=== PATIENT | male | born 1935 | race Caucasian/White ===

== ENCOUNTER 2017-09-11 00:44 | Emergency (ER) | payer MEDICARE, BC ==
[~2017-09-11] VITALS: Ht 162.6 cm; Wt 59.0 kg
[2017-09-11 01:05] VITALS: BP 170/76; PULSE 80; RESP 18; TEMP 97.6; O2SAT 97
[2017-09-11] MEDS ORDERED: MYCO500 PO (02:11)
[2017-09-11] MEDS ORDERED: MULTTAB67 PO (02:12)
[2017-09-11] MEDS ORDERED: FURO40TA PO (02:12)
[2017-09-11] MEDS ORDERED: PRIM50TA5 PO (02:12)
[2017-09-11] MEDS ORDERED: PRAV40TA2 PO (02:12)
[2017-09-11] MEDS ORDERED: ATEN25TA PO (02:12)
[2017-09-11] MEDS ORDERED: NIFE20 PO (02:12)
[2017-09-11] MEDS ORDERED: CYCL25CA4 PO (02:12)
[2017-09-11] MEDS ORDERED: PRED2.5T PO (02:12)
--- NOTE | 2017-09-11 02:37 | PD ---
HPI Chief Complaint: Cold / Flu Symptoms Time Seen by Provider: 02:33 Travel History International Travel<30 days: No Contact w/Intl Traveler<30days: No Traveled to known affect area: No History of Present Illness HPI 82-year-old male presents to the emergency department by private transportation to care family for 2 days of runny nose post sinus drainage and sore throat and cough. Daughter states he felt warm to her and patient reports had a chill this evening. Patient is status post renal transplant from 2005. Patient is visiting from [place]. Patient recently exposed to family members with strep throat. Patient denies any headache there is been no noted altered mentation no change in his speech no report of generalized weakness patient denies any chest pain or pleuritic chest pain or shortness of breath. Cough is productive but patient has not looked at the phlegm. Patient has had no nausea or vomiting no abdominal pain no flank pain no diarrhea and no dysuria. Patient's continue to have good urine output. Patient does not report any lower extremity pain or swelling. Patient denies other concerns or complaints. PFSH Past Medical History Narrative Medical Renal failure status post AV fistula graft left upper extremity renal transplant hypertension dyslipidemia Medical History: Denies Significant Hx Diminished Hearing: Yes Hypertension: Yes Influenza Vaccination: Yes Social History Alcohol Use: No Tobacco Use: No Substance Use: No Allergies-Medications (Allergen,Severity, Reaction): Coded Allergies: iodine (Verified Allergy, Unknown, UNKNOWN, 09/11/17) zinc (Verified Allergy, Unknown, UNKNOWN, 09/11/17) Reported Meds & Prescriptions Reported Meds & Active Scripts Active Zithromax Z-Per (Azithromycin) 250 Mg Dspk 250 Mg PO DIRECTED 500 MG (2 tabs) day 1, then 1 tab days 2-5. Reported Furosemide 40 Mg Tab 40 Mg PO DAILY Multiple Vitamin 1 Tab 1 Tab PO DAILY Atenolol 25 Mg Tab 12.5 Mg PO HS Primidone 50 Mg Tab 50 Mg PO BID Pravastatin 40 Mg Tab 40 Mg PO DAILY Prednisone 2.5 Mg Tab 2.5 Mg PO DAILY Cyclosporine 25 Mg Cap 50 Mg PO TID Nifedipine 20 Mg Cap 60 Mg PO BID Cellcept (Mycophenolate Mofetil) 500 Mg Tab 1,000 Mg PO BID Review of Systems Except as stated in HPI: all other systems reviewed are Neg General / Constitutional: Positive: Fever (Subjective), Chills HENT: Positive: Sore Throat, Congestion Cardiovascular: No: Chest Pain or Discomfort Respiratory: Positive: Cough, No: Shortness of Breath Gastrointestinal: No: Nausea, Vomiting, Diarrhea Genitourinary: No: Dysuria Musculoskeletal: No: Myalgias, Arthralgias Skin: No Rash Neurologic: No: Weakness Psychiatric: No: Anxiety Hematologic/Lymphatic: No: Easy Bruising Physical Exam Narrative GENERAL: Well-developed pleasant elderly male in no acute distress no respiratory distress SKIN: Warm and dry. HEAD: Normocephalic. EYES: No scleral icterus. No injection or drainage. NECK: Supple, trachea midline. No JVD or lymphadenopathy. CARDIOVASCULAR: Regular rate and rhythm without murmurs, gallops, or rubs. RESPIRATORY: Breath sounds equal bilaterally. No accessory muscle use. GASTROINTESTINAL: Abdomen soft, non-tender, nondistended. MUSCULOSKELETAL: No cyanosis, or edema. Left upper extremity AV fistula graft with thrill BACK: Nontender without obvious deformity. No CVA tenderness. Data Data Last Documented VS Vital Signs Date Time Temp Pulse Resp B/P (MAP) Pulse Ox O2 Delivery O2 Flow Rate FiO2 09/11/17 05:23 99.0 80 09/11/17 04:59 80 16 Orders Orders Influenzae A/B Antigen (09/11/17 02:01) Complete Blood Count With Diff (09/11/17 02:33) Comprehensive Metabolic Panel (09/11/17 02:33) Group A Rapid Strep Screen (09/11/17 02:33) Chest, Single Ap (09/11/17 02:33) Iv Access Insert/Monitor (09/11/17 02:33) Oximetry (09/11/17 02:33) Sodium Chloride 0.9% Flush (Ns Flush) (09/11/17 02:45) Cefepime Inj (Maxipime Inj) (09/11/17 02:45) Blood Culture (09/11/17 02:33) Lactic Acid (09/11/17 02:33) Urinalysis - C+S If Indicated (09/11/17 02:33) Strep Culture (Group A) (09/11/17 03:05) Ed Discharge Order (09/11/17 05:16) Azithromycin (Zithromax) (09/11/17 05:30) Labs Laboratory Tests Test 09/11/17 03:05 09/11/17 04:25 White Blood Count 8.2 TH/MM3 Red Blood Count 3.96 MIL/MM3 Hemoglobin 12.3 GM/DL Hematocrit 36.0 % Mean Corpuscular Volume 90.9 FL Mean Corpuscular Hemoglobin 31.0 PG Mean Corpuscular Hemoglobin Concent 34.1 % Red Cell Distribution Width 14.9 % Platelet Count 221 TH/MM3 Mean Platelet Volume 8.8 FL Neutrophils (%) (Auto) 66.0 % Lymphocytes (%) (Auto) 12.0 % Monocytes (%) (Auto) 20.7 % Eosinophils (%) (Auto) 0.6 % Basophils (%) (Auto) 0.7 % Neutrophils # (Auto) 5.4 TH/MM3 Lymphocytes # (Auto) 1.0 TH/MM3 Monocytes # (Auto) 1.7 TH/MM3 Eosinophils # (Auto) 0.0 TH/MM3 Basophils # (Auto) 0.1 TH/MM3 CBC Comment DIFF FINAL Differential Comment Blood Urea Nitrogen 19 MG/DL Creatinine 0.96 MG/DL Random Glucose 86 MG/DL Total Protein 6.4 GM/DL Albumin 2.8 GM/DL Calcium Level 8.0 MG/DL Alkaline Phosphatase 79 U/L Aspartate Amino Transf (AST/SGOT) 34 U/L Alanine Aminotransferase (ALT/SGPT) 22 U/L Total Bilirubin 0.3 MG/DL Sodium Level 138 MEQ/L Potassium Level 3.5 MEQ/L Chloride Level 104 MEQ/L Carbon Dioxide Level 25.5 MEQ/L Anion Gap 9 MEQ/L Estimat Glomerular Filtration Rate 75 ML/MIN Lactic Acid Level 0.7 mmol/L Urine Color YELLOW Urine Turbidity CLEAR Urine pH 6.0 Urine Specific [place] 1.014 Urine Protein 100 mg/dL Urine Glucose (UA) NEG mg/dL Urine Ketones NEG mg/dL Urine Occult Blood NEG Urine Nitrite NEG Urine Bilirubin NEG Urine Urobilinogen LESS THAN 2.0 MG/DL Urine Leukocyte Esterase NEG Urine RBC LESS THAN 1 /hpf Urine WBC LESS THAN 1 /hpf Urine Squamous Epithelial Cells <1 /hpf Urine Mucus FEW /lpf Microscopic Urinalysis Comment CULT NOT INDICATED MDM Medical Decision Making Medical Screen Exam Complete: Yes Emergency Medical Condition: Yes Medical Record Reviewed: Yes Interpretation(s) Influenza A/B antigen: Negative Rapid strep antigen: Negative Last Impressions Chest X-Ray 09/11/17 9747 Signed Impressions: Service Date/Time: September 02:38 - CONCLUSION: No acute cardiopulmonary abnormality is identified. Adrian Tirado MD CBC & BMP Diagram 09/11/17 03:05 Total Protein 6.4, Albumin 2.8 L, Calcium Level 8.0 L, Alkaline Phosphatase 79, Aspartate Amino Transf (AST/SGOT) 34, Alanine Aminotransferase (ALT/SGPT) 22, Total Bilirubin 0.3 Lactic acid: 0.7, not elevated Differential Diagnosis Pharyngitis, sinusitis, influenza, pneumonia, sepsis Narrative Course Patient placed on lunchroom monitor IV access obtained specimens collected and sent for resulting @ 4:10 AM call placed to patient placement coordinator, Virgie King [phone] Lab values grossly within normal limits CBC with automated differential does show monocytosis; chemistries grossly within normal range; urinalysis shows some protein; chest x-ray no lobar infiltrate; lactic acid is not elevated at 0.7; chest x-ray no lobar infiltrate; rapid strep antigen is negative and influenza antigen is negative. Patient has received a one-time dose of cefepime 2 g IV piggyback and oral dose of azithromycin. Patient feels well remains afebrile and is desirous of being discharged to home. Diagnosis Primary Impression: Sinusitis Qualified Codes: J01.90 - Acute sinusitis, unspecified Referrals: Primary Care Physician 1 day Patient Instructions: General Instructions Additional Instructions: Increase fluid hydration Complete course of antibiotic as prescribed Continue chronic medications as chronically prescribed Monitor temperature every 4 hours with thermometer and take acetaminophen/ Tylenol every 4 hours for fever 100.4F or greater Return to the emergency department for any concerns or change in condition Med/Other Pt SpecificInfo: Prescription(s) given Scripts Azithromycin (Zithromax Z-Per) 250 Mg Dspk 250 MG PO DIRECTED for Infection, #1 DSPK 0 Refills 500 MG (2 tabs) day 1, then 1 tab days 2-5. Prov: Margi Ho MD 09/11/17 Disposition: 01 DISCHARGE HOME Condition: Stable Margi Ho MD Sep 11, 2017 02:37
[2017-09-11] MEDS ORDERED: CEFEPIME INJ 2,000 MG in SODIUM CHLORIDE 0.9% INJ 100 ML IV ONE (02:45)
[2017-09-11] MEDS ORDERED: SODIUM CHLORIDE 0.9% FLUSH 10 ML FLUSH IVF PRN (02:45)
--- NOTE | 2017-09-11 02:58 | RADRPT ---
EXAM DATE/TIME: 09/11/2017 02:38 [facility] COMPARISON: No previous studies available for comparison. INDICATIONS : Cold and flu symptoms. MEDICAL HISTORY : None. SURGICAL HISTORY : None. ENCOUNTER: Initial ACUITY: 1 day PAIN SCORE: 0/10 LOCATION: Bilateral chest FINDINGS: Portable AP view of the chest demonstrates a normal-sized cardiac silhouette. No effusion, consolidat ion, or pneumothorax identified. The bones and soft tissues demonstrate no acute finding. There are d egenerative changes of the thoracic spine. Stent graft overlies the region of the abdominal aorta. CONCLUSION: No acute cardiopulmonary abnormality is identified. Adrian Tirado MD on September 11, 2017 at 2:56 Board Certified Radiologist. This report was verified electronically.
[2017-09-11 03:24] LABS: AUTOMATED NEUTROPHIL # 5.4 TH/MM3 (1.8-7.7); BASOPHIL # 0.1 TH/MM3 (0-0.2); BASOPHIL % 0.7 % (0.0-2.0); EOSINOPHIL % 0.6 % (0.0-4.0); HEMOGLOBIN 12.3 GM/DL (13.0-17.0); MEAN CELL VOLUME 90.9 FL (80.0-100.0); MEAN CORPUSCULAR HGB CONC 34.1 % (32.0-36.0); MEAN PLATELET VOLUME 8.8 FL (7.0-11.0); MONO % 20.7 % (0.0-8.0); MONOCYTE # 1.7 TH/MM3 (0-0.9); PLATELET COUNT 221 TH/MM3 (150-450); RED BLOOD COUNT 3.96 MIL/MM3 (4.50-5.90); RED CELL DISTRIBUTION WIDTH 14.9 % (11.6-17.2); WHITE BLOOD COUNT 8.2 TH/MM3 (4.0-11.0)
[2017-09-11 03:44] LABS: ALBUMIN 2.8 GM/DL (3.4-5.0); ALT (GPT) 22 U/L (12-78); AST (GOT) 34 U/L (15-37); BICARBONATE 25.5 MEQ/L (21.0-32.0); BLOOD UREA NITROGEN 19 MG/DL (7-18); CHLORIDE 104 MEQ/L (98-107); CREATININE 0.96 MG/DL (0.60-1.30); GLOMERULAR FILTRATION RATE 75 ML/MIN (>89); GLUCOSE,RANDOM 86 MG/DL (74-106); SODIUM (NA) 138 MEQ/L (136-145)
[2017-09-11 03:47] LABS: ALKALINE PHOSPHATASE 79 U/L (45-117); TOTAL BILIRUBIN ADULT 0.3 MG/DL (0.2-1.0); TOTAL PROTEIN 6.4 GM/DL (6.4-8.2)
[2017-09-11 04:51] LABS: BILIRUBIN, URINE NEG (NEG); BLOOD, URINE NEG (NEG); GLUCOSE,URINE NEG (NEG); KETONE, URINE NEG (NEG); MUCUS URINE FEW /lpf (OCC); NITRITE,URINE NEG (NEG); SQUAMOUS EPITHELIAL CELL URINE <1 /hpf (0-5); URINE COLOR YELLOW (YELLW/STRAW); URINE LEUKOCYTE ESTERASE NEG (NEG)
[2017-09-11 04:59] VITALS: BP 165/76; PULSE 80; RESP 16; TEMP 99.1
[2017-09-11] MEDS ORDERED: ZITHTAB PO (05:15)
[2017-09-11 05:23] VITALS: TEMP 99
[2017-09-11] MEDS ORDERED: AZITHROMYCIN 250 MG TAB PO ONE (05:30)
== END 2017-09-11 05:31 | disposition home or self-care (01) ==
LOC: NEPC 00:44
DX: J32.9 Chronic sinusitis, unspecified (principal); I12.9 Hypertensive chronic kidney disease with stage 1 through stage 4 chronic kidney disease, or unspecified chronic kidney disease; N18.9 Chronic kidney disease, unspecified; E78.5 Hyperlipidemia, unspecified; Z79.899 Other long term (current) drug therapy; Z94.0 Kidney transplant status
CPT/HCPCS: 71045; 80053; 81001; 83605; 85025; 87040; 87081; 87804; 87880; 96365; 99284; J0692